=== PATIENT | female | born 1935 | race Caucasian/White ===

== ENCOUNTER 2020-09-16 21:09 | Emergency (ER) | payer MEDICARE, OTHER ==
[~2020-09-16] VITALS: Ht 157.5 cm; Wt 65.0 kg
--- NOTE | 2020-09-16 21:11 | NUR ---
INITIAL PT CONTACT. BIB EMS FROM HOME, PT REPORTS FEELING IF CHICKEN IS LODGED IN HER THROAT. SINCE DINNER, APPROX 4 HOURS AGO. PT MAINTAINING AIRWAY, RESPIRATIONS EQUAL AND UNLABORED PT UNABLE TO SWALLOW SECRETIONS. PT STATES THIS HAS NEVER HAPPENED BEFORE. PT SITTING UPRIGHT ON BED, NADN, VSS. PT PROVIDED WARM BLANKET. CALL LIGHT AND PERSONAL BELONGINGS WITHIN REACH. AWAITING ERP.
[2020-09-16] MEDS ORDERED: PROPOFOL 10 MG/ML, 20ML IVPush ONE (22:00)
[2020-09-16] MEDS ORDERED: PROPOFOL 10 MG/ML, 20ML ONE (22:12)
--- NOTE | 2020-09-16 22:22 | NUR ---
REPORT TO SELAM CHEN. PT MOVED FROM ED ROOM 34 TO ED TRAUMA 1. PLACED ON CONTINUOUS MONITORING.
--- NOTE | 2020-09-16 22:32 | NUR ---
TREVOR ARELLANO [phone]
--- NOTE | 2020-09-16 22:40 | NUR ---
GI AND ENDO AT BEDSIDE ALONG WITH DR. MARTIN FOR EGD.
--- NOTE | 2020-09-16 22:45 | NUR ---
PROCEEDURE COMPLETE PT TOLERATED WELL, PT GIVEN 60MG OF PROPOFOL.
[2020-09-16] MEDS ORDERED: LABETALOL 5MG/ML, 20ML ONE (23:19)
--- NOTE | 2020-09-16 23:23 | NUR ---
ERP UPDATED ON PT BP, NEW MEDS ORDERED.
[2020-09-16 23:28] VITALS: BP 169/66
[2020-09-16] MEDS ORDERED: ENALAPRILAT 1.25 MG/ML, 2ML IV ONE (23:30)
[2020-09-16] MEDS ORDERED: LABETALOL 5MG/ML, 20ML IVPush ONE (23:30)
--- NOTE | 2020-09-17 00:10 | NUR ---
Patient/Caregiver given discharge instructions and they have confirmed that they understand the instructions. Patient ambulatory with steady gait.
== END 2020-09-17 00:12 | disposition home or self-care (01) ==
LOC: ED 23:30
DX: T18.128A Food in esophagus causing other injury, initial encounter (principal); I10 Essential (primary) hypertension; X58.XXXA Exposure to other specified factors, initial encounter; Y93.9 Activity, unspecified; Y92.89 Other specified places as the place of occurrence of the external cause; Y99.8 Other external cause status
CPT/HCPCS: 96374